=== PATIENT | female | born 1955 | race Caucasian/White ===

== ENCOUNTER → 2018-08-13 | Outpatient (CLI) | payer OTHER ==
[~2018-08-13] MED LIST: ASPI81CH PO; Estradiol1 EAC5 TD; FLUO20 PO; FOLGARD TABLET1 EACH PO; IRBHYD150 PO; METO50ER PO; NEW BP MED; OMEP20ER PO; ONDA4 PO; OXYC15ER; OXYC40ER PO; ROXICODONE5 MG PO; TRIBENZOR 20-51 EACH PO
[2018-08-17 14:06] LABS: HPV 16 Negative (Negative); HPV 18 Negative (Negative); HPV OTHER HR TYPES Negative (Negative)
== END | disposition home or self-care (01) ==
LOC: LAB 17:19 → LAB SHORT 17:19
PROVIDERS: Nurse Practitioner Women's Health
DX: Z12.72 Encounter for screening for malignant neoplasm of vagina (principal); Z91.89 Other specified personal risk factors, not elsewhere classified
CPT/HCPCS: 87624; G0123

== ENCOUNTER 2023-03-18 10:30 | Emergency (ER) | payer OTHER ==
[~2023-03-18] VITALS: Ht 160 cm; Wt 63.5 kg
[2023-03-18] MEDS ORDERED: Robaxin750 MG PO (12:39)
[2023-03-18] MEDS ORDERED: Neurontin 300300 MG PO (12:39)
[2023-03-18] MEDS ORDERED: IBUP800 PO (12:39)
[2023-03-18 13:05] VITALS: BP 133/78
== END 2023-03-18 13:06 | disposition home or self-care (01) ==
LOC: ER 10:30
DX: M25.511 Pain in right shoulder (principal); M79.621 Pain in right upper arm; I10 Essential (primary) hypertension; G89.29 Other chronic pain; M54.9 Dorsalgia, unspecified; Z79.82 Long term (current) use of aspirin; Z79.899 Other long term (current) drug therapy
CPT/HCPCS: 73030; 96372; 99283-25; J1885

== ENCOUNTER 2024-02-25 10:10 | Day surgery (SDC) | payer OTHER ==
[~2024-02-25 10:10] MED LIST changes: +IBUP800 PO; +Neurontin 300300 MG PO; +Robaxin750 MG PO
== END 2024-02-25 23:00 | disposition home or self-care (01) ==
LOC: MOI MAM 10:10
DX: D05.12 Intraductal carcinoma in situ of left breast (principal)
CPT/HCPCS: 19081; 88305; 88342; 88360; A4648

== ENCOUNTER 2024-03-05 18:39 | Emergency (ER) | payer OTHER ==
[~2024-03-05] VITALS: Ht 165.1 cm; Wt 63.5 kg
[2024-03-05 20:01] VITALS: BP 110/95
== END 2024-03-05 20:16 | disposition home or self-care (01) ==
LOC: ER 18:39
DX: S00.83XA Contusion of other part of head, initial encounter (principal); K21.9 Gastro-esophageal reflux disease without esophagitis; I10 Essential (primary) hypertension; W18.30XA Fall on same level, unspecified, initial encounter; Z79.82 Long term (current) use of aspirin; Z79.899 Other long term (current) drug therapy
CPT/HCPCS: 70450; 93005; 93010; 99284-25

== ENCOUNTER 2024-04-07 10:09 | Day surgery (SDC) | payer OTHER ==
[2024-04-08] MEDS ORDERED: OXYCONTIN10 MG PO (08:41)
[2024-04-08] MEDS ORDERED: TORSE20 PO (08:42)
[2024-04-08] MEDS ORDERED: ELIQUIS5 M3 PO (08:42)
[2024-04-08] MEDS ORDERED: SPIRONOLACTONE25 MG PO (08:42)
== END 2024-04-07 23:00 | disposition home or self-care (01) ==
LOC: MOI MAM 10:09
DX: D05.12 Intraductal carcinoma in situ of left breast (principal)
CPT/HCPCS: 19281; A4648

== ENCOUNTER 2024-04-08 08:00 | Day surgery (SDC) | payer OTHER ==
[~2024-04-08] VITALS: Ht 165.1 cm; Wt 64.5 kg
[~2024-04-08 08:00] MED LIST changes: +FentaNYL Citrate 50 MCG/ML 2 ML Injection ONE; +Lactated Ringer's 1,000 ML IV ONE; +propofoL 20 ML IV ONE
[2024-04-08] MEDS ORDERED: CeFAZolin Sodium 2,000 MG VIAL ONE (08:12)
[2024-04-08] MEDS ORDERED: Lactated Ringer's 1,000 ML IV ONE ×3 (08:33→10:01)
[2024-04-08] MEDS ORDERED: OXYCONTIN10 MG PO (08:41)
[2024-04-08] MEDS ORDERED: TORSE20 PO (08:42)
[2024-04-08] MEDS ORDERED: ELIQUIS5 M3 PO (08:42)
[2024-04-08] MEDS ORDERED: SPIRONOLACTONE25 MG PO (08:42)
[2024-04-08] MEDS ORDERED: Midazolam HCl 1MG / ML 2ML Vial ONE (09:14)
[2024-04-08] MEDS ORDERED: Phenylephrine HCl 100 MCG/ML-NS 10MLSYR (1MG/10ML) ONE (09:37)
[2024-04-08] MEDS ORDERED: Ondansetron HCl 2 MG / ML 2ML Vial ONE (09:37)
[2024-04-08] MEDS ORDERED: Dexamethasone Sod Phos 10 MG/ML 1ML VIAL ONE (09:37)
[2024-04-08] MEDS ORDERED: Bupivacaine 0.5% HCl 5 MG/ML 30MLVIAL INJ ONE (10:02)
[2024-04-08 13:42] VITALS: BP 104/87
--- NOTE | 2024-04-08 13:48 | NUR ---
04/08/24 1348 Lanre Ramirez PT FREQUENTLY MOVING ARM IN SDU. B/P WITHIN 20% OF BASELINE WHILE PT HOLDING ARM STILL. PT'S HEART RATE NOTED TO BE IRREGULAR IN SDU . PT REPORTED MILD DIZZINESS BUT DENIED OTHER CARDIAC SYMPTOMS--INCLUDING CP, SOB, DIZZINESS, WEAKNESS, AND NAUSEA. PAT MCFADDEN CONSULTED REGARDING HR AND OTHER VITALS AND APPROVED D/C.
== END 2024-04-08 12:30 | disposition home or self-care (01) ==
LOC: ORSCSDS 08:00
PROVIDERS: Surgery
PROC: 0HBU0ZZ Excision of Left Breast, Open Approach (ICD-10-PCS; principal; 2024-04-08 09:00)
DX: D05.12 Intraductal carcinoma in situ of left breast (principal); I10 Essential (primary) hypertension; I48.91 Unspecified atrial fibrillation; Z79.01 Long term (current) use of anticoagulants; I12.9 Hypertensive chronic kidney disease with stage 1 through stage 4 chronic kidney disease, or unspecified chronic kidney disease; N18.9 Chronic kidney disease, unspecified; F41.9 Anxiety disorder, unspecified; F32.A Depression, unspecified; Z79.899 Other long term (current) drug therapy
CPT/HCPCS: 88307; J0690; J1100; J2250; J2371; J2405; J2704; J3010; J7120

== ENCOUNTER 2024-04-16 17:21 | Emergency (ER) | payer OTHER ==
[~2024-04-16] VITALS: Ht 160 cm; Wt 68.0 kg
[~2024-04-16 17:21] MED LIST changes: +ELIQUIS5 M3 PO; -FentaNYL Citrate 50 MCG/ML 2 ML Injection ONE; -Lactated Ringer's 1,000 ML IV ONE; +OXYCONTIN10 MG PO; +SPIRONOLACTONE25 MG PO; +TORSE20 PO; -propofoL 20 ML IV ONE
[2024-04-16] MEDS ORDERED: Tambocor100 MG PO (17:59)
[2024-04-16] MEDS ORDERED: OMEP20ER PO (17:59)
[2024-04-16] MEDS ORDERED: LOSA25 PO (18:00)
[2024-04-16] MEDS ORDERED: Amlodipine Bes2.5 MG PO (18:01)
[2024-04-16] MEDS ORDERED: HYDROCODONE-AC1 EA19 PO (18:01)
[2024-04-16 18:18] LABS: BASOPHILS ABSOLUTE AUTO 0.02 K/mm3 (0.00-0.23); BASOPHILS PERCENT AUTO 0 % (0-2); EOSINOPHILS ABSOLUTE AUTO 0.03 K/mm3 (0.00-0.68); EOSINOPHILS PERCENT AUTO 0 % (0-6); Hematocrit 33.9 % (33.0-51.0); Hemoglobin 11.5 g/dL (11.5-16.0); IMMATURE GRAN ABSOLUTE AUTO 0.02 K/mm3 (0.00-0.10); IMMATURE GRAN PERCENT AUTO 0 % (0-1); LYMPHOCYTES ABSOLUTE AUTO 1.31 K/mm3 (0.84-5.20); LYMPHOCYTES PERCENT AUTO 18 % (21-46); MONOCYTES ABSOLUTE AUTO 0.34 K/mm3 (0.16-1.47); MONOCYTES PERCENT AUTO 5 % (4-13); Mean Corpuscular HGB 33.9 pg (26.0-34.0); Mean Corpuscular HGB Conc 33.9 g/dL (31.5-36.5); Mean Corpuscular Volume 100 fL (80-100); NEUTROPHILS ABSOLUTE AUTO 5.54 K/mm3 (1.96-9.15); NEUTROPHILS PERCENT AUTO 76 % (41-73); Platelet Count 201 K/mm3 (150-400); RDW Coefficient Variation 14.1 % (11.7-14.2); RDW Standard Deviation 51.1 fL (35.1-46.3); Red Blood Cell Count 3.39 M/mm3 (3.80-5.20); White Blood Cell Count 7.26 K/mm3 (4.00-11.30)
[2024-04-16 18:28] LABS: Albumin, Blood 2.6 g/dL (3.4-5.0); Albumin/Globulin Ratio 0.9 (0.8-1.8); Bilirubin, Total 0.5 mg/dL (0.1-1.0); Bun/Creatinine Ratio 6.3 (12.0-20.0); Calcium, Blood 8.3 mg/dL (8.5-10.1); Creatinine, Blood 1.11 mg/dL (0.40-1.00); Globulin, Blood 2.9 g/dL (2.2-4.0); Potassium, Blood 3.3 mmol/L (3.5-5.5); Total Protein, Blood 5.5 g/dL (6.4-8.2)
[2024-04-16 19:15] VITALS: BP 127/77
[2024-04-19] MEDS ORDERED: TORS10 PO (14:01)
[2024-04-19] MEDS ORDERED: SPIR25 PO (14:02)
== END 2024-04-16 19:37 | disposition home or self-care (01) ==
LOC: ER 17:21
PROVIDERS: Physician Assistant
DX: L76.32 Postprocedural hematoma of skin and subcutaneous tissue following other procedure (principal); K21.9 Gastro-esophageal reflux disease without esophagitis; I10 Essential (primary) hypertension; Z79.899 Other long term (current) drug therapy
CPT/HCPCS: 80053; 85025; 99283

== ENCOUNTER 2024-04-22 11:21 | Day surgery (SDC) | payer OTHER ==
[~2024-04-22] VITALS: Ht 165.1 cm; Wt 149.1 kg
[~2024-04-22 11:21] MED LIST changes: +Amlodipine Bes2.5 MG PO; +HYDROCODONE-AC1 EA19 PO; +LOSA25 PO; +Ropivacaine 0.5% HCL/PF 5 MG/ML 30ML Vial ONE; +SPIR25 PO; +TORS10 PO; +Tambocor100 MG PO
[2024-04-22] MEDS ORDERED: FentaNYL Citrate 50 MCG/ML 2 ML Injection IV ONE (11:22)
[2024-04-22] MEDS ORDERED: Norco 5-325 Ta1 EACH PO (11:55)
[2024-04-22] MEDS ORDERED: Lactated Ringer's 1,000 ML IV ONE (12:09)
[2024-04-22] MEDS ORDERED: propofoL 20 ML IV ONE (12:13)
[2024-04-22] MEDS ORDERED: Ondansetron HCl 2 MG / ML 2ML Vial IV ONE (12:23)
[2024-04-22] MEDS ORDERED: Dexamethasone Sod Phos 10 MG/ML 1ML VIAL IV ONE (12:23)
[2024-04-22] MEDS ORDERED: HYDROcodone 5-APAP 325 TAB ONE (13:38)
[2024-04-22 13:40] VITALS: BP 98/73
--- NOTE | 2024-04-22 13:43 | NUR ---
04/22/24 1343 Krunal Wang, PT IN 510 PAIN. POST-OP ORDER BY DR MARTIN STATES OK TO GIVE NORCO 5/325. MED GIVEN PER ORDER. MONITORING VS. PT TALKING WITH FAM. ABLE TO TOLERATE PO MED AND DRINKING WATER WITHOUT NAUSEA.
== END 2024-04-22 14:09 | disposition home or self-care (01) ==
LOC: ORSCSDS 11:21
PROVIDERS: Surgery
PROC: 0HCU0ZZ Extirpation of Matter from Left Breast, Open Approach (ICD-10-PCS; principal; 2024-04-22 13:00)
DX: D05.12 Intraductal carcinoma in situ of left breast (principal); L76.32 Postprocedural hematoma of skin and subcutaneous tissue following other procedure; Y84.8 Other medical procedures as the cause of abnormal reaction of the patient, or of later complication, without mention of misadventure at the time of the procedure; I48.91 Unspecified atrial fibrillation; Z79.01 Long term (current) use of anticoagulants; F32.A Depression, unspecified; I12.9 Hypertensive chronic kidney disease with stage 1 through stage 4 chronic kidney disease, or unspecified chronic kidney disease; N18.9 Chronic kidney disease, unspecified; F41.9 Anxiety disorder, unspecified; Z79.899 Other long term (current) drug therapy
CPT/HCPCS: A9270; J1100; J2405; J2704; J2795; J3010